=== PATIENT | male | born 1955 | race Caucasian/White ===

== ENCOUNTER 2020-05-09 21:19 | Emergency (ER) | payer BC, OTHER ==
[~2020-05-09] VITALS: Ht 180.3 cm; Wt 95.3 kg
[2020-05-09] MEDS ORDERED: ONDANSETRON HCL INJ 2MG/ML 2ML 2 MG/ML VIAL IV STA (21:49)
[2020-05-09] MEDS ORDERED: KETOROLAC TROMETHAMINE 30 MG/ML VIAL IV STA (21:49)
[2020-05-09] MEDS ORDERED: KETOROLAC TROMETHAMINE 30 MG/ML VIAL ONE (22:22)
[2020-05-09] MEDS ORDERED: ONDANSETRON HCL INJ 2MG/ML 2ML 2 MG/ML VIAL ONE (22:22)
[2020-05-09] MEDS ORDERED: FLOMAX0.4 MG PO (23:45)
[2020-05-09] MEDS ORDERED: ZOFRAN4 MG SL (23:45)
[2020-05-09] MEDS ORDERED: KETOROLAC TROME10 MG PO (23:45)
[2020-05-10] MEDS ORDERED: CLONIDINE HCL 0.2 MG TAB PO ONE
[2020-05-10 00:01] VITALS: BP 199/94
[2020-05-10] MEDS ORDERED: CLONIDINE HCL 0.1 MG TAB ONE (00:01)
== END 2020-05-10 00:22 | disposition home or self-care (01) ==
LOC: FSED 21:49
DX: N20.0 Calculus of kidney (principal); I10 Essential (primary) hypertension
CPT/HCPCS: 70450; 74176; 80048; 80076; 81003; 85025; 96374; 99284; J1885; J2405